=== PATIENT | female | born 1960 | race Caucasian/White ===

== ENCOUNTER 2020-08-20 15:24 | Emergency (ER) | payer OTHER, MEDICAID ==
[2020-08-20 15:38] VITALS: TEMP 98.1
--- NOTE | 2020-08-20 16:28 | CT ---
EXAMINATION TYPE: CT brain beatriz morse DATE OF EXAM: 08/20/2020 COMPARISON: None HISTORY: Fall, headache and neck pain CT DLP: 1507.[address] of the brain was performed. The ventricles, basal cisterns and sulci overlying the cerebral convexities demonstrate mild enlargem ent. There is no evidence for intracranial hemorrhage or sulcal effacement. There is decreased attenuatio n about the periventricular white matter and deep white matter of both cerebral hemispheres, compatib le with chronic small vessel ischemia. No mass effects are seen. If symptoms persist consider MRI. Osseous calvarium is intact. IMPRESSION: 1. Age related atrophic and chronic small vessel ischemic change without acute intracranial process seen at this time. CT Cervical Spine: Unenhanced CT of the cervical spine was performed with bone and soft tissue window settings submitted . Coronal and sagittal reconstruction is obtained. There is normal alignment and prevertebral soft tissues. No evidence for acute cervical fracture . Scattered degenerative disc disease and spondylosis. Biapical scarring. IMPRESSION: 1. No evidence for acute fracture or subluxation of the cervical spine.
--- NOTE | 2020-08-20 17:30 | XR ---
EXAMINATION TYPE: XR ribs RT w pa chest xray DATE OF EXAM: 08/20/2020 COMPARISON: 09/12/2008 HISTORY: Rib pain TECHNIQUE: 5 views FINDINGS: Heart is normal. Lungs are clear. Costophrenic angles are clear. There are no hilar masses. Bony thorax is intact. The right ribs appear intact. There is no sign of a pneumothorax. IMPRESSION: No active cardiopulmonary disease. No evidence of rib fracture.
--- NOTE | 2020-08-20 17:31 | XR ---
EXAMINATION TYPE: XR Hip Bilateral and AP pelvis DATE OF EXAM: 08/20/2020 COMPARISON: NONE HISTORY: Fall. Pain. TECHNIQUE: 5 views FINDINGS: The pelvic ring is intact. Proximal femurs are intact. There is mild acetabular spurring. T here is no hip dysplasia. Sacroiliac joints appear intact. IMPRESSION: Negative pelvis and bilateral hip exam. Mild acetabular spurring noted.
--- NOTE | 2020-08-20 17:32 | XR ---
EXAMINATION TYPE: XR lumbar spine 2 or 3V DATE OF EXAM: 08/20/2020 COMPARISON: NONE HISTORY: Fall. Pain. TECHNIQUE: 3 views FINDINGS: There is second-degree L5-S1 spondylolisthesis. There is bilateral L5 spondylolysis. There is no compression fracture. Sacroiliac joints are normal. IMPRESSION: Second degree L5-S1 spondylolisthesis. No acute bony abnormality.
--- NOTE | 2020-08-20 17:40 | ED ---
Fall HPI - General Chief Complaint: Fall Stated Complaint: [facility] - fall, head/neck pain Time Seen by Provider: 08/20/20 15:41 Source: patient Mode of arrival: ambulatory - History of Present Illness Initial Comments: 59-year-old feel presenting today for chief complaint of fall from chair. Patient states she is in a chair that broke she found her right side struck the right several head she states she has left-sided back pain she states that she has right rib pain and right hip pain and low back pain. She denies any injury to the knees ankles or wrists elbows or shoulders bilaterally. She denies any anterior chest pain. She denies syncope. Patient denies any nausea vomiting she states that initially she had slight dizziness but that really resolved. She states that dull aching headache. Patient denies any anticoagulation therapy she denies loss of consciousness she denies any abdominal trauma. Patient has no additional complaints and upon arrival she appears well nontoxic distress. Patient denies any paresthesias or numbness tingling or loss sensation coolness or pallor of extremities - Related Data Home Medications Medication Instructions Recorded Confirmed Atorvastatin Calcium [Lipitor] 20 mg PO DAILY 08/20/20 08/20/20 Multivitamins, Thera [Multivitamin 1 tab PO DAILY 08/20/20 08/20/20 (formulary)] Semaglutide [Ozempic] 1 mg SQ FR 08/20/20 08/20/20 lisinopriL [Zestril] 2.5 mg PO DAILY 08/20/20 08/20/20 metFORMIN HCL [Glucophage] 500 mg PO BID 08/20/20 08/20/20 Allergies Allergy/AdvReac Type Severity Reaction Status Date / Time aspirin Allergy Unknown Verified 08/20/20 16:39 codeine Allergy Unknown Verified 08/20/20 16:39 Sulfa (Sulfonamide Allergy Unknown Verified 08/20/20 16:39 Antibiotics) Review of Systems ROS Statement: Those systems with pertinent positive or pertinent negative responses have been documented in the HPI. ROS Other: All systems not noted in ROS Statement are negative. Past Medical History Past Medical History: Diabetes Mellitus, Hyperlipidemia, Hypertension History of Any Multi-Drug Resistant Organisms: None Reported Past Surgical History: Hysterectomy, Tonsillectomy Past Psychological History: No Psychological Hx Reported Smoking Status: Never smoker Past Alcohol Use History: None Reported Past Drug Use History: None Reported General Exam - General Exam Comments Initial Comments: General: The patient is awake and alert, in no distress Eye: +3 mm pupils are equal, round and reactive to light, extra-ocular movements are intact. No nystagmus. There is normal conjunctiva bilaterally. No signs of icterus. Ears, nose, mouth and throat: There are moist mucous membranes and no oral lesions. pt has paraspinal tenderness of the cervical spine mostly left-sided some minimal lower cervical tenderness midline. Neck: The neck is supple, there is no tenderness or JVD. Cardiovascular: There is a regular rate and rhythm. No murmur, rub or gallop is appreciated. Respiratory: Lungs are clear to auscultation, respirations are non-labored, breath sounds are equal. No wheezes, stridor, rales, or rhonchi. Gastrointestinal: Soft, non-distended, non-tender abdomen without masses or organomegaly noted. There is no rebound or guarding present. No CVA tenderness. Musculoskeletal: Normal ROM, no tenderness. Strength 5/5 of the UE and LE b/l. Sensation intact of the UE and LE b/l. Radial and DP pulses equal bilaterally 2+. Neurological: A&O x 3. CN II-XII intact, There are no obvious motor or sensory deficits. Coordination appears grossly intact. Speech is normal. Skin: Skin is warm and dry and no rashes or lesions are noted. no raccoon or Quijano sign Psychiatric: Cooperative, appropriate mood & affect, normal judgment. Limitations: no limitations Course Vital Signs 08/20/20 15:35 Temperature 98.1 F Pulse Rate 97 Respiratory 16 Rate Blood Pressure 160/86 O2 Sat by Pulse 99 Oximetry Medical Decision Making - Medical Decision Making 59yo female presenting for cc of fall at work, chair broke. XR (-). she is ambulatory she is neurovascularly intact. Patient is no focal neurological deficits. Patient c-collar removed she states she had relief of neck pain on repeat examination midline tenderness resolved patient only continued to have left-sided paraspinal tenderness. At this time patient states she is comfortable discharge patient is to be cleared back to work by Nextly return primary for discussed the patient is discharged. While Disposition Clinical Impression: Fall, Neck strain, Low back pain, Hip pain Disposition: HOME SELF-CARE Condition: Good Instructions (If sedation given, give patient instructions): R.I.C.E. Treatment (ED), Fall Prevention (ED) Additional Instructions: Please use medication as discussed. Please follow-up with family doctor in the next 2 days. Please return to emergency room if the symptoms increase or worsen or for any other concerns. Is patient prescribed a controlled substance at d/c from ED?: No Referrals: Marline Barroso DO [Primary Care Provider] - 1-2 days Time of Disposition: 17:39
[2020-08-20 17:58] VITALS: BP 127/79; PULSE 99; RESP 18
== END 2020-08-20 17:58 | disposition home or self-care (01) ==
LOC: EC 15:24
DX: S16.1XXA Strain of muscle, fascia and tendon at neck level, initial encounter (principal); M25.551 Pain in right hip; M54.5 Low back pain; I10 Essential (primary) hypertension; E11.9 Type 2 diabetes mellitus without complications; E78.5 Hyperlipidemia, unspecified; Z79.899 Other long term (current) drug therapy; Z79.84 Long term (current) use of oral hypoglycemic drugs; Z88.6 Allergy status to analgesic agent; Z88.2 Allergy status to sulfonamides; Z88.5 Allergy status to narcotic agent; W07.XXXA Fall from chair, initial encounter; Y92.69 Other specified industrial and construction area as the place of occurrence of the external cause; Y99.0 Civilian activity done for income or pay
CPT/HCPCS: 70450; 72100; 72125; 73521; 99284

== ENCOUNTER → 2020-08-28 | Outpatient (CLI) | payer OTHER ==
--- NOTE | 2020-08-28 14:34 | XR ---
EXAMINATION TYPE: XR ankle complete RT DATE OF EXAM: 08/28/2020 COMPARISON: None HISTORY: Fall on chair, pain TECHNIQUE: Three-view right ankle FINDINGS: No acute displaced fractures are evident. The ankle mortise is intact. Soft tissues appear normal. Secondary ossification centers are inferior to the medial malleolus. Plantar and Achilles ten don calcaneal heel spurs are present. Follow-up exams can be performed 7-10 days from acute trauma for continued pain. IMPRESSION: 1. No acute osseous abnormality right ankle
--- NOTE | 2020-08-28 14:35 | XR ---
EXAMINATION TYPE: XR foot complete RT DATE OF EXAM: 08/28/2020 COMPARISON: None HISTORY: Pain, fall TECHNIQUE: Three-view right foot FINDINGS: No acute fractures or dislocations are evident. Plantar and Achilles tendon calcaneal heel spurs are present. There is lucency within the medial aspect proximal portion distal phalanx great to e may be an old fracture. Follow-up exams can be performed 7-10 days from acute trauma for continued pain. IMPRESSION: 1. No acute osseous abnormality.
== END | disposition home or self-care (01) ==
LOC: RADXRMAIN 14:03
PROVIDERS: ATTEND Emergency Medicine
DX: S93.401D Sprain of unspecified ligament of right ankle, subsequent encounter (principal); S93.601D Unspecified sprain of right foot, subsequent encounter; M25.571 Pain in right ankle and joints of right foot

== ENCOUNTER → 2020-09-17 | Outpatient (CLI) | payer OTHER ==
--- NOTE | 2020-09-17 16:45 | XR ---
EXAMINATION TYPE: XR ankle complete RT DATE OF EXAM: 09/17/2020 COMPARISON: NONE HISTORY: Pain TECHNIQUE: 3 views FINDINGS: Ankle mortise is anatomic. There is plantar and Achilles calcaneal spurring. I see no fract ure nor dislocation. There is some spurring at the medial malleolus consistent with old injury. IMPRESSION: Degenerative changes in the right ankle. No fracture seen.
== END ==
LOC: RADXRMAIN 16:22
PROVIDERS: ATTEND Emergency Medicine
DX: M19.071 Primary osteoarthritis, right ankle and foot (principal)

== ENCOUNTER → 2020-12-25 | Outpatient (CLI) | payer BC ==
--- NOTE | 2020-12-25 16:43 | BD ---
EXAMINATION TYPE: Axial Bone Density DATE OF EXAM: 12/25/2020 COMPARISON: NONE CLINICAL HISTORY: 60 YR OLD FEMALE......ICD-10 CODE: Z78.0 POST MENOPAUSAL Height: 64.3 Weight: 203 FRAX RISK QUESTIONS: Glucocorticoids (More than 3mos): YES (Ex: prednisone, prednisolone, methylprednisolone, dexamethasone, and hydrocortisone). Secondary Osteoporosis: YES 3. Menopause before 45: YES RISK FACTORS HISTORY OF: Diet low in dairy products/other sources of calcium: YES Postmenopausal woman: YES, AT AGE 42 YRS OLD, HYST Hyperparathyroidism: NO Adrenal Insufficiency: NO MEDICATIONS: Prednisone or other steroids: ALBUTERAL, ASTHMA, AND ANOTHER STEROIDAL INHALER Additional Medications: BP MEDS, METFORMIN, OZEMPIC, VIT D AND CALCIUM, MOTRIN, TYLENOL Additional History: HYPERTENSION, DIABETIC, MIGRAINES, EXAM MEASUREMENTS: Bone mineral densitometry was performed using the [employer] System. Bone mineral density as measured about the Lumbar spine is: ----- L1-L4(G/cm2): 1.093 T Score Values are as follows: ----- L1: -2.0 ----- L2: -0.2 ----- L3: -0.4 ----- L4: -0.9 ----- L1-L4: -0.7 Bone mineral density ....PT NEW TODAY, BASELINE STUDY Bone mineral density about the R hip (g/cm2): 0.961 Bone mineral density about the L hip (g/cm2): 0.942 T Score values are as follows: -----R Neck: -0.9 -----L Neck: -0.8 -----R Total: -0.4 -----L Total: -0.5 Bone mineral density BASELINE STUDY FRAX%s: THERE IS A 11.0% CHANCE FOR A MAJOR OSTEOPOROTIC FX AND A 0.7% FOR HIP......PROBABILITY FO R FX IN 10 YRS TIME IMPRESSION: Normal (Values between +1 and -1 indicate normal bone mass). Consider repeating this study in 5 year s or sooner if there is some new clinical indication. NOTE: T-SCORE=SD OF THE YOUNG ADULT MEAN.
--- NOTE | 2020-12-31 10:06 | MM ---
Reason for exam: screening (asymptomatic). Physical Findings: A clinical breast exam by your physician is recommended on an annual basis and results should be correlated with mammographic findings. MG Screening Mammo w CAD Bilateral CC and MLO view(s) were taken. No prior studies available for comparison. There are scattered fibroglandular densities. Focal asymmetry right upper outer quadrant. ASSESSMENT: Benign, BI-RAD 2 RECOMMENDATION: Routine screening mammogram of both breasts in 1 year.
== END | disposition home or self-care (01) ==
LOC: RADMAMWWP 07:03
PROVIDERS: ATTEND Family Medicine
DX: Z12.31 Encounter for screening mammogram for malignant neoplasm of breast (principal); Z78.0 Asymptomatic menopausal state
CPT/HCPCS: 77067; 77080

== ENCOUNTER 2021-01-20 | Day surgery (SDC) | payer BC | END 2021-01-20 09:47 | disposition home or self-care (01) | DX: Z12.11 Encounter for screening for malignant neoplasm of colon (principal); K59.09 Other constipation; K57.30 Diverticulosis of large intestine without perforation or abscess without bleeding; K62.1 Rectal polyp; Z79.84 Long term (current) use of oral hypoglycemic drugs; Z79.82 Long term (current) use of aspirin; Z88.2 Allergy status to sulfonamides; Z88.5 Allergy status to narcotic agent; Z88.6 Allergy status to analgesic agent | CPT/HCPCS: 88305; 45380; J2704 ==

== ENCOUNTER → 2022-06-22 | Outpatient (CLI) | payer BC ==
--- NOTE | 2022-06-23 08:39 | MM ---
Reason for Exam: Screening (asymptomatic). Last mammogram was performed 1 year(s) and 6 month(s) ago. Patient History: Menarche at age 7. First Full-Term at age 19. Hysterectomy at age 42. Risk Values: Anabel 5 year model risk: 1.5%. NCI Lifetime model risk: 6.6%. Prior Study Comparison: 12/25/2020 Bilateral Screening Mammogram, [facility]. Tissue Density: There are scattered fibroglandular densities. Findings: Analyzed By CAD. There is no suspicious group of microcalcifications or new suspicious mass in either breast. Overall Assessment: Negative, BI-RAD 1 Management: Screening Mammogram of both breasts in 1 year. A clinical breast exam by your physician is recommended on an annual basis and results should be correlated with mammographic findings. [facility] will attempt to contact patient to return for supplemental views and ultrasound if indicated. Electronically signed and approved by: David Baumann DO
== END | disposition home or self-care (01) ==
LOC: RADMAMWWP 06:42
PROVIDERS: ATTEND Family Medicine
DX: Z12.31 Encounter for screening mammogram for malignant neoplasm of breast (principal)
CPT/HCPCS: 77067

== ENCOUNTER → 2022-10-26 | Outpatient (CLI) | payer OTHER ==
[2022-10-26 16:33] LABS: African American GFR (CKD) >90 (>60 ml/min/1.73 sqM); Blood Urea Nitrogen 21 mg/dL (7-17); Non-African American GFR(CKD) >90 (>60 ml/min/1.73 sqM)
--- NOTE | 2022-10-26 20:30 | CT ---
EXAMINATION TYPE: CT abdomen pelvis w con CT DLP: 3046 mGycm, Automated exposure control for dose reduction was used. DATE OF EXAM: 10/26/2022 5:19 PM COMPARISON: CT abdomen pelvis most recent from 09/20/2022 CLINICAL INDICATION:Female, 62 years old with history of R93.3 abn finding dx imaging D44.10 adrenal gland; abn findings on dx imaging TECHNIQUE: Axial CT of the abdomen and pelvis. Sagittal and coronal reformats were created on a [employer] workstation. Contrast used:100ml mL of Isovue 300 without and with IV Contrast, Oral contrast used: with Oral Contrast FINDINGS: ABDOMEN LIVER: Diffusely hypoattenuating parenchyma. GALLBLADDER AND BILE DUCTS: Unremarkable. PANCREAS: Unremarkable. SPLEEN: Unremarkable. ADRENAL GLANDS: Right adrenal gland nodule measuring 2.1 x 2.1 cm and -8 Hounsfield units on noncontr ast imaging, 21 Hounsfield units on portal venous imaging and 0 Hounsfield units on delayed imaging. Absolute Washout:73.3% Relative Washout:100.0% Absolute washout of 60% or higher is consistent with an adenoma. Relative washout of 40% or higher is consistent with an adenoma. The left adrenal gland is unremarkable. KIDNEYS AND URETERS: No evidence of hydronephrosis or renal calculus. The ureters are unremarkable. PELVIS BLADDER: Unremarkable REPRODUCTIVE: Unremarkable. ABDOMEN & PELVIS STOMACH AND BOWEL: No evidence of bowel obstruction. Small hiatal hernia. Scattered colonic divertic ulosis. The appendix is normal. PERITONEUM/RETROPERITONEUM: No evidence of pneumoperitoneum or free fluid. VASCULATURE: Mild atherosclerotic calcifications are present throughout the abdominal aorta and its b ranches. No evidence of aortic aneurysm. MUSCULOSKELETAL: No acute osseous abnormalities. Mild disc degeneration changes are present throughou t the thoracolumbar spine. Grade 1 anterolisthesis of L5 on S1 with bilateral spondylolysis. LYMPH NODES: No gross evidence for lymphadenopathy. SOFT TISSUE/ABDOMINAL WALL: No evidence for subcutaneous tissue mass. IMPRESSION: 1. Right adrenal gland lesion is most compatible with benign lipid rich adrenal adenoma. 2. Grade 1 anterolisthesis of L5 on S1 with bilateral spondylolysis. 3. Colonic diverticulosis no evidence for inflammation. 4. Hepatic steatosis. 5. Small hiatal hernia.
== END | disposition home or self-care (01) ==
LOC: RADCTMAIN 15:46
PROVIDERS: ATTEND Family Medicine
DX: D44.11 Neoplasm of uncertain behavior of right adrenal gland (principal); K57.30 Diverticulosis of large intestine without perforation or abscess without bleeding; K76.0 Fatty (change of) liver, not elsewhere classified; K44.9 Diaphragmatic hernia without obstruction or gangrene; M43.17 Spondylolisthesis, lumbosacral region; M47.817 Spondylosis without myelopathy or radiculopathy, lumbosacral region; R93.3 Abnormal findings on diagnostic imaging of other parts of digestive tract
CPT/HCPCS: 82565; 84520; 74177; 36415; Q9967

== ENCOUNTER → 2023-02-15 | Outpatient (CLI) | payer OTHER ==
--- NOTE | 2023-02-15 09:40 | CT ---
EXAMINATION TYPE: CT tmj maxillofacial wo con CT DLP: 717.40 mGycm, Automated exposure control for dose reduction was used. DATE OF EXAM: 02/15/2023 7:40 AM COMPARISON: None. CLINICAL INDICATION:Female, 62 years old with history of H92.01 OTALGIA, RIGHT EAR; PHH, Otalgia, rig ht ear TECHNIQUE: Multiple unenhanced axial CT images were obtained of the facial bones soft tissue and bone windows. Opening closed mouth views were obtained. Coronal, axial and sagittal reformatted images we re also provided in soft tissue and bone windows and submitted for interpretation. FINDINGS: There is no evidence of fracture, subluxation, dislocation, or significant soft tissue swelling. The orbital contents are unremarkable. The temporal-mandibular joints appear symmetric. No osseous arthri tic/degenerative changes identified involving the TMJ joints. The mandibular condyles appear [place] on the closed mouth view however there is excessive anterior subluxation/dislocation on the open mouth view bilaterally. The visualized portion of the paranasal sinuses appear clear. IMPRESSION: 1. Excessive anterior subluxation/dislocation of both mandible condyles on the open-mouth view. 2. No osseous arthritic/degenerative changes identified involving the TMJ joints.
== END | disposition home or self-care (01) ==
LOC: RADCTMAIN 06:17
PROVIDERS: ATTEND Otolaryngology
DX: H92.01 Otalgia, right ear (principal); M26.601 Right temporomandibular joint disorder, unspecified
CPT/HCPCS: 70486

== ENCOUNTER 2023-08-08 17:42 | Emergency (ER) | payer OTHER ==
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
[2023-08-08 18:19] VITALS: BP 153/76; PULSE 105; RESP 20; TEMP 98.2
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
== END 2023-08-08 22:05 | disposition home or self-care (01) ==
LOC: EC 17:42
DX: S00.03XA Contusion of scalp, initial encounter (principal); E11.9 Type 2 diabetes mellitus without complications; E78.5 Hyperlipidemia, unspecified; I10 Essential (primary) hypertension; Z79.84 Long term (current) use of oral hypoglycemic drugs; Z79.899 Other long term (current) drug therapy; Z88.6 Allergy status to analgesic agent; Z88.5 Allergy status to narcotic agent; Z88.2 Allergy status to sulfonamides; V43.52XA Car driver injured in collision with other type car in traffic accident, initial encounter; Y92.410 Unspecified street and highway as the place of occurrence of the external cause
CPT/HCPCS: 70450; 72125; 99283

== ENCOUNTER → 2023-12-15 | Outpatient (CLI) | payer MEDICARE, OTHER ==
--- NOTE | 2023-12-15 20:15 | MM ---
Reason for Exam: Screening (asymptomatic). Last mammogram was performed 1 year(s) and 5 month(s) ago. Patient History: Menarche at age 7. First Full-Term at age 19. Hysterectomy at age 42. Risk Values: Anabel 5 year model risk: 1.6%. NCI Lifetime model risk: 6.2%. Prior Study Comparison: 12/25/2020 Bilateral Screening Mammogram, [facility]. 06/22/2022 Bilateral MG screening mammo w CAD, [facility]. Tissue Density: There are scattered areas of fibroglandular density. Findings: Analyzed By CAD. There is no suspicious group of microcalcifications or new suspicious mass in either breast. Overall Assessment: Negative, BI-RAD 1 Management: Screening Mammogram of both breasts in 1 year. . Patient should continue monthly self-breast exams. A clinical breast exam by your physician is recommended on an annual basis. This exam should not preclude additional follow-up of suspicious palpable abnormalities. Note on Anabel scores and lifetime risk: 1. A Anabel score greater than 3% is considered moderate risk. If this is the case, consider specialist referral to assess eligibility for a risk reducing agent. 2. If overall lifetime risk for the development of breast cancer is 20% or higher, the patient may qualify for future screening with alternating mammogram and breast MRI. Electronically signed and approved by: Adrian Motta M.D. Radiologist
== END | disposition home or self-care (01) ==
LOC: RADMAMWWP 07:12
PROVIDERS: ATTEND Family Medicine
DX: Z12.31 Encounter for screening mammogram for malignant neoplasm of breast (principal)
CPT/HCPCS: 77067

== ENCOUNTER → 2024-04-23 | Outpatient (CLI) | payer MEDICARE, OTHER ==
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
== END | disposition home or self-care (01) ==
LOC: RADMRIMAIN 16:20
PROVIDERS: ATTEND Family Medicine
DX: M25.512 Pain in left shoulder